=== PATIENT | male | born 1985 | race Two or more races ===

== ENCOUNTER 2019-03-21 21:08 | Emergency (ER) | payer MEDICAID ==
[~2019-03-21] VITALS: Ht 177.8 cm; Wt 85.3 kg
[2019-03-21 21:11] VITALS: BP 148/77
--- NOTE | 2019-03-21 21:24 | NUR ---
PT PRESENTED WITH C/O COUGH X FOUR DAYS, +YELLOW SPUTUM. "I LIVE [facility] [address] [address] [facility] AND THEY TOLD ME I HAD TO BE SEEN", + SICK CONTACTS, DENIES CP/SOB. AWAITING XRAY
== END 2019-03-21 22:08 | disposition home or self-care (01) ==
LOC: ED 22:02
DX: J06.9 Acute upper respiratory infection, unspecified (principal)
CPT/HCPCS: 71045; 99283

== ENCOUNTER 2019-05-14 14:02 | Emergency (ER) | payer SELFPAY ==
[~2019-05-14] VITALS: Ht 175.3 cm; Wt 72.0 kg
[2019-05-14 14:14] VITALS: BP 116/84
[2019-05-14] MEDS ORDERED: CEFTRIAXONE 250 MG ONE (14:52)
[2019-05-14] MEDS ORDERED: AZITHROMYCIN 250 MG TABLET ONE (14:53)
[2019-05-14] MEDS ORDERED: CEFTRIAXONE 250 MG IM ONE (15:00)
[2019-05-14] MEDS ORDERED: AZITHROMYCIN 500 MG TABLET PO ONE (15:00)
--- NOTE | 2019-05-14 16:01 | NUR ---
Urine for GC chlamydia collected & sent.
--- NOTE | 2019-05-14 16:21 | NUR ---
Patient given discharge instructions and they have confirmed that they understand the instructions. Patient ambulatory with steady gait. Instructed verbally & printed about abstaining from intercourse x 1 wk.
== END 2019-05-14 16:24 | disposition home or self-care (01) ==
LOC: ED 14:32
DX: J06.9 Acute upper respiratory infection, unspecified (principal); N34.1 Nonspecific urethritis; F17.200 Nicotine dependence, unspecified, uncomplicated
CPT/HCPCS: 87081; 87491; 87591; 87880; 96372; 99283; J0696